=== PATIENT | female | born 1965 | race Caucasian/White ===

== ENCOUNTER 2020-11-16 20:52 | Inpatient (IN) | payer OTHER ==
[~2020-11-16] VITALS: Ht 157.5 cm; Wt 74.0 kg
[2020-11-16] MEDS ORDERED: SIMV-259 PO (20:58)
[2020-11-16 21:46] LABS: BASOPHILS % (AUTO) 1.2 % (0.0-2.0); EOSINOPHILS % (AUTO) 0.3 % (1.0-6.0); HEMATOCRIT 42.7 % (36-46); HEMOGLOBIN 14.5 g/dL (12.0-16.0); LYMPHOCYTES % (AUTO) 13.5 % (22.0-44.0); MEAN CORPUSCULAR HEMOGLOBIN 30.7 pg (26.0-34.0); MEAN CORPUSCULAR HGB CONC 33.9 G/dL (31.0-37.0); MEAN CORPUSCULAR VOLUME 91 fL (80-100); MONOCYTES # (AUTO) 0.9 K/uL (0.1-1.0); MONOCYTES % (AUTO) 5.9 % (2.0-9.0); NEUTROPHILS # (AUTO) 11.6 K/uL (1.8-7.7); NEUTROPHILS % (AUTO) 79.1 % (40.0-70.0); PLATELET COUNT (AUTO) 307 K/uL (150-450); RED BLOOD CELL COUNT(AUTO) 4.71 MIL/uL (4.00-5.20); RED CELL DISTRIBUTION WIDTH 13.7 % (11.5-14.5)
[2020-11-16 21:49] LABS: APPEARANCE,URINE CLEAR (CLEAR); BILIRUBIN,URINE NEGATIVE (NEGATIVE); GLUCOSE, URINE (UA) NEGATIVE (NEGATIVE); KETONES,URINE NEGATIVE (NEGATIVE); LEUKOCYTE ESTERASE ,URINE NEGATIVE (NEGATIVE); NITRATE,URINE NEGATIVE (NEGATIVE); OCCULT BLOOD,URINE NEGATIVE (NEGATIVE); PH,URINE 6.5 (5.0-8.0); PROTEIN,URINE NEGATIVE (NEGATIVE); UROBILINOGEN,URINE 0.2 mg/dL (<=1.0)
[2020-11-16 22:01] LABS: ANION GAP 10 mmol/L (8-16); CALCIUM, TOTAL 9.6 mg/dL (8.8-10.5); CARBON DIOXIDE 29 mmol/L (22-29); CHLORIDE 101 mmol/L (98-107); CREATININE 0.94 mg/dL (0.60-1.30); GLOMERULAR FILTR. RATE CALC > 60 mL/min (>60); GLUCOSE,RANDOM 122 mg/dL (70-110); POTASSIUM 3.8 mmol/L (3.5-5.1); SODIUM SERUM 140 mmol/L (136-145); UREA NITROGEN, BLOOD 13 mg/dL (7-18)
[2020-11-16 22:07] LABS: ALANINE AMINOTRANSFERASE 64 U/L (12-78); ALBUMIN 4.2 g/dL (3.4-5.0); ALKALINE PHOSPHATASE 120 U/L (46-116); ASPARTATE AMINOTRANSFERASE 21 U/L (15-37); BILIRUBIN,TOTAL 0.2 mg/dL (0.1-1.0); LIPASE 190 U/L (73-393); TOTAL PROTEIN, SERUM 7.9 g/dL (6.4-8.2)
[2020-11-16] MEDS ORDERED: KETOROLAC TROMETHAMINE 30 MG/ML VIAL IVP ONE (22:30)
[2020-11-16] MEDS ORDERED: BARIUM SULFATE 0.1% SUSPENSION 450 ML BOTTLE PO ONE (22:30)
[2020-11-16] MEDS ORDERED: LORazepam 2 MG/ML VIAL IVP ONE (22:30)
[2020-11-16] MEDS ORDERED: SODIUM CHLORIDE 0.9% 1,000 ML IV ONE (22:30)
[2020-11-16] MEDS ORDERED: IOVERSOL 350 MG/ML 100 ML VIAL ONE (23:05)
[2020-11-16] MEDS ORDERED: SODIUM CHLORIDE 0.9% 100 ML ONE (23:05)
[2020-11-17] VITALS (7 sets, daily range): BP systolic 106–121; BP diastolic 60–73
[2020-11-17] MEDS ORDERED: MORPHINE SULFATE 4 MG/ML SYRINGE IVP ONE (01:00)
[2020-11-17] MEDS ORDERED: ONDANSETRON HCL 4 MG/2 ML VIAL IVP PRN (01:15)
[2020-11-17] MEDS ORDERED: PIPERACILLIN/TAZO 3.375 GM/D5W 50 ML IV ONE (01:15)
[2020-11-17] MEDS ORDERED: POTASSIUM CHL 20 MEQ/0.9% NS 1,000 ML IV ONE (01:15)
[2020-11-17 03:06] LABS: COVID AG,FIA SOURCE NASOPHARYNGEAL
[2020-11-17] MEDS: MORPHINE SULFATE 4 MG/ML SYRINGE IVP PRN ×5 (03:24→20:05)
[2020-11-17] MEDS ORDERED: INFLUENZA VIRUS VACCINE QVS 2020-21 (6MO+)/PF 60 MCG/0.5 ML SYRINGE IM ONE (05:30)
[2020-11-17] MEDS ORDERED: PIPERACILLIN/TAZO 3.375 GM/D5W 50 ML IV SCH (08:00)
[2020-11-17] MEDS: DOCUSATE SODIUM 100 MG CAPSULE PO SCH ×2 (08:35→20:04)
[2020-11-17] MEDS: SODIUM CHLORIDE 0.9% 1,000 ML IV SCH ×2 (08:36→21:10)
[2020-11-17] MEDS: ACETAMINOPHEN 325 MG TABLET PO PRN ×2 (08:45→21:10)
[2020-11-17] MEDS ORDERED: PANTOPRAZOLE SODIUM 40 MG/VIAL IVP SCH (09:00)
[2020-11-17] MEDS: ONDANSETRON HCL 4 MG/2 ML VIAL IVP PRN (14:47)
[2020-11-17] MEDS: LORazepam 2 MG/ML VIAL IVP PRN (14:48)
[2020-11-17] MEDS: PIPERACILLIN/TAZO 3.375 GM/D5W 50 ML IV SCH ×2 (16:39→22:22)
[2020-11-17] MEDS: FAMOTIDINE 20 MG TABLET PO SCH (20:04)
[2020-11-18] MEDS: ACETAMINOPHEN 325 MG TABLET PO PRN ×3 (01:51→20:34)
[2020-11-18] MEDS: SODIUM CHLORIDE 0.9% 1,000 ML IV SCH ×3 (04:00→22:19)
[2020-11-18] MEDS: PIPERACILLIN/TAZO 3.375 GM/D5W 50 ML IV SCH ×4 (04:07→22:21)
[2020-11-18 04:49] VITALS: BP 108/73
[2020-11-18 08:02] VITALS: BP 119/71
[2020-11-18 08:24] LABS: ANION GAP 3 mmol/L (8-16); CALCIUM, TOTAL 8.7 mg/dL (8.8-10.5); CARBON DIOXIDE 28 mmol/L (22-29); CHLORIDE 101 mmol/L (98-107); CREATININE 0.69 mg/dL (0.60-1.30); GLOMERULAR FILTR. RATE CALC > 60 mL/min (>60); GLUCOSE,RANDOM 113 mg/dL (70-110); POTASSIUM 3.8 mmol/L (3.5-5.1); SODIUM SERUM 132 mmol/L (136-145); UREA NITROGEN, BLOOD 7 mg/dL (7-18)
[2020-11-18 08:26] LABS: BASOPHILS % (AUTO) 0.4 % (0.0-2.0); EOSINOPHILS % (AUTO) 0.2 % (1.0-6.0); HEMATOCRIT 37.2 % (36-46); HEMOGLOBIN 12.6 g/dL (12.0-16.0); LYMPHOCYTES # (AUTO) 1.3 K/uL (1.0-4.8); LYMPHOCYTES % (AUTO) 8.6 % (22.0-44.0); MEAN CORPUSCULAR HEMOGLOBIN 31.1 pg (26.0-34.0); MEAN CORPUSCULAR HGB CONC 33.7 G/dL (31.0-37.0); MEAN CORPUSCULAR VOLUME 92 fL (80-100); MONOCYTES # (AUTO) 0.7 K/uL (0.1-1.0); MONOCYTES % (AUTO) 4.7 % (2.0-9.0); NEUTROPHILS # (AUTO) 12.7 K/uL (1.8-7.7); PLATELET COUNT (AUTO) 245 K/uL (150-450); RED BLOOD CELL COUNT(AUTO) 4.05 MIL/uL (4.00-5.20); RED CELL DISTRIBUTION WIDTH 13.9 % (11.5-14.5)
[2020-11-18] MEDS: DOCUSATE SODIUM 100 MG CAPSULE PO SCH ×2 (08:27→20:31)
[2020-11-18] MEDS: FAMOTIDINE 20 MG TABLET PO SCH ×2 (08:27→20:31)
[2020-11-18] MEDS: MORPHINE SULFATE 4 MG/ML SYRINGE IVP PRN ×3 (08:28→20:31)
[2020-11-18 08:33] LABS: NEUTROPHILS % (AUTO) 86.1 % (40.0-70.0)
[2020-11-18] MEDS: ONDANSETRON HCL 4 MG/2 ML VIAL IVP PRN ×2 (08:38→15:57)
[2020-11-18 15:39] VITALS: BP 113/72
[2020-11-18 20:23] VITALS: BP 116/70
[2020-11-18] MEDS: LORazepam 2 MG/ML VIAL IVP PRN (22:20)
[2020-11-19 00:24] VITALS: BP 118/71
[2020-11-19] MEDS: PIPERACILLIN/TAZO 3.375 GM/D5W 50 ML IV SCH ×4 (03:50→21:24)
[2020-11-19 05:50] VITALS: BP 125/83
[2020-11-19 07:41] VITALS: BP_SYST 11; BP_SYST 114; BP_DIAS 66
[2020-11-19 07:49] LABS: BASOPHILS % (AUTO) 0.5 % (0.0-2.0); EOSINOPHILS % (AUTO) 0.2 % (1.0-6.0); HEMOGLOBIN 11.9 g/dL (12.0-16.0); LYMPHOCYTES # (AUTO) 1.6 K/uL (1.0-4.8); LYMPHOCYTES % (AUTO) 12.6 % (22.0-44.0); MEAN CORPUSCULAR HEMOGLOBIN 30.9 pg (26.0-34.0); MEAN CORPUSCULAR HGB CONC 33.9 G/dL (31.0-37.0); MEAN CORPUSCULAR VOLUME 91 fL (80-100); MONOCYTES # (AUTO) 0.6 K/uL (0.1-1.0); MONOCYTES % (AUTO) 4.8 % (2.0-9.0); NEUTROPHILS # (AUTO) 10.7 K/uL (1.8-7.7); NEUTROPHILS % (AUTO) 81.9 % (40.0-70.0); PLATELET COUNT (AUTO) 239 K/uL (150-450); RED BLOOD CELL COUNT(AUTO) 3.84 MIL/uL (4.00-5.20); RED CELL DISTRIBUTION WIDTH 13.8 % (11.5-14.5)
[2020-11-19 07:54] LABS: ANION GAP 11 mmol/L (8-16); CALCIUM, TOTAL 8.6 mg/dL (8.8-10.5); CARBON DIOXIDE 25 mmol/L (22-29); CHLORIDE 105 mmol/L (98-107); CREATININE 0.68 mg/dL (0.60-1.30); GLOMERULAR FILTR. RATE CALC > 60 mL/min (>60); GLUCOSE,RANDOM 107 mg/dL (70-110); POTASSIUM 3.6 mmol/L (3.5-5.1); SODIUM SERUM 141 mmol/L (136-145); UREA NITROGEN, BLOOD 7 mg/dL (7-18)
[2020-11-19] MEDS: DOCUSATE SODIUM 100 MG CAPSULE PO SCH ×2 (09:15→20:41)
[2020-11-19] MEDS: FAMOTIDINE 20 MG TABLET PO SCH ×2 (09:15→20:41)
[2020-11-19] MEDS: MORPHINE SULFATE 4 MG/ML SYRINGE IVP PRN (09:25)
[2020-11-19] MEDS: DEXTROSE 5%-0.45% SODIUM CHL 1,000 ML IV SCH (10:18)
[2020-11-19] MEDS ORDERED: FLUO20CA36 PO (12:16)
[2020-11-19] MEDS ORDERED: BUPR-317 PO (12:16)
[2020-11-19] MEDS ORDERED: NORT50CA PO (12:16)
[2020-11-19] MEDS ORDERED: CLON0.5T4 PO (12:16)
[2020-11-19] MEDS: ACETAMINOPHEN 325 MG TABLET PO PRN (13:55)
[2020-11-19 15:18] VITALS: BP 121/76
[2020-11-19] MEDS: MORPHINE SULFATE 2 MG/ML SYRINGE IVP PRN ×2 (16:40→21:28)
[2020-11-19 19:32] VITALS: BP 121/75
[2020-11-19] MEDS: LORazepam 2 MG/ML VIAL IVP PRN (22:28)
[2020-11-19 23:43] VITALS: BP 116/65
[2020-11-20] MEDS: MORPHINE SULFATE 2 MG/ML SYRINGE IVP PRN ×4 (01:46→21:18)
[2020-11-20] MEDS: DEXTROSE 5%-0.45% SODIUM CHL 1,000 ML IV SCH ×2 (01:47→17:11)
[2020-11-20 04:19] VITALS: BP 110/67
[2020-11-20] MEDS: PIPERACILLIN/TAZO 3.375 GM/D5W 50 ML IV SCH ×4 (04:46→21:18)
[2020-11-20 08:21] VITALS: BP 106/69
[2020-11-20 08:41] LABS: LYMPHOCYTES # (AUTO) 1.3 K/uL (1.0-4.8); MONOCYTES # (AUTO) 0.7 K/uL (0.1-1.0); NEUTROPHILS # (AUTO) 7.9 K/uL (1.8-7.7)
[2020-11-20 08:45] LABS: BASOPHILS % (AUTO) 1.3 % (0.0-2.0); EOSINOPHILS % (AUTO) 1.2 % (1.0-6.0); HEMATOCRIT 36.6 % (36-46); HEMOGLOBIN 12.7 g/dL (12.0-16.0); LYMPHOCYTES % (AUTO) 13.1 % (22.0-44.0); MEAN CORPUSCULAR HEMOGLOBIN 31.2 pg (26.0-34.0); MEAN CORPUSCULAR HGB CONC 34.6 G/dL (31.0-37.0); MEAN CORPUSCULAR VOLUME 90 fL (80-100); MONOCYTES % (AUTO) 6.5 % (2.0-9.0); NEUTROPHILS % (AUTO) 77.9 % (40.0-70.0); RED BLOOD CELL COUNT(AUTO) 4.07 MIL/uL (4.00-5.20); RED CELL DISTRIBUTION WIDTH 13.7 % (11.5-14.5)
[2020-11-20 08:46] LABS: ANION GAP 12 mmol/L (8-16); CARBON DIOXIDE 24 mmol/L (22-29); CHLORIDE 103 mmol/L (98-107); GLUCOSE,RANDOM 122 mg/dL (70-110); POTASSIUM 3.5 mmol/L (3.5-5.1); SODIUM SERUM 139 mmol/L (136-145); UREA NITROGEN, BLOOD 9 mg/dL (7-18)
[2020-11-20 08:47] LABS: CALCIUM, TOTAL 8.9 mg/dL (8.8-10.5); GLOMERULAR FILTR. RATE CALC > 60 mL/min (>60)
[2020-11-20] MEDS: FAMOTIDINE 20 MG TABLET PO SCH ×2 (09:00→20:38)
[2020-11-20] MEDS: DOCUSATE SODIUM 100 MG CAPSULE PO SCH ×2 (09:00→20:38)
[2020-11-20 09:19] LABS: PLATELET COUNT (AUTO) 267 K/uL (150-450)
[2020-11-20 12:03] VITALS: BP 102/54
[2020-11-20 17:10] VITALS: BP 139/78
[2020-11-20 20:10] VITALS: BP 121/76
[2020-11-20] MEDS: ONDANSETRON HCL 4 MG/2 ML VIAL IVP PRN (21:22)
[2020-11-21 00:10] VITALS: BP 129/72
[2020-11-21] MEDS: LORazepam 2 MG/ML VIAL IVP PRN (00:16)
[2020-11-21] MEDS: MORPHINE SULFATE 2 MG/ML SYRINGE IVP PRN (02:40)
[2020-11-21] MEDS: PIPERACILLIN/TAZO 3.375 GM/D5W 50 ML IV SCH ×2 (03:44→09:12)
[2020-11-21 04:10] VITALS: BP 102/67
[2020-11-21 06:56] LABS: BASOPHILS % (AUTO) 1.8 % (0.0-2.0); EOSINOPHILS % (AUTO) 1.7 % (1.0-6.0); HEMATOCRIT 37.1 % (36-46); HEMOGLOBIN 12.8 g/dL (12.0-16.0); LYMPHOCYTES # (AUTO) 1.5 K/uL (1.0-4.8); LYMPHOCYTES % (AUTO) 21.6 % (22.0-44.0); MEAN CORPUSCULAR HEMOGLOBIN 31.2 pg (26.0-34.0); MEAN CORPUSCULAR HGB CONC 34.4 G/dL (31.0-37.0); MEAN CORPUSCULAR VOLUME 91 fL (80-100); MONOCYTES # (AUTO) 0.7 K/uL (0.1-1.0); MONOCYTES % (AUTO) 10.1 % (2.0-9.0); NEUTROPHILS # (AUTO) 4.4 K/uL (1.8-7.7); NEUTROPHILS % (AUTO) 64.8 % (40.0-70.0); PLATELET COUNT (AUTO) 301 K/uL (150-450); RED BLOOD CELL COUNT(AUTO) 4.09 MIL/uL (4.00-5.20); RED CELL DISTRIBUTION WIDTH 13.8 % (11.5-14.5)
[2020-11-21 08:29] LABS: ANION GAP 12 mmol/L (8-16); CARBON DIOXIDE 25 mmol/L (22-29); CHLORIDE 103 mmol/L (98-107); CREATININE 0.64 mg/dL (0.60-1.30); GLOMERULAR FILTR. RATE CALC > 60 mL/min (>60); GLUCOSE,RANDOM 111 mg/dL (70-110); POTASSIUM 3.4 mmol/L (3.5-5.1); SODIUM SERUM 140 mmol/L (136-145); UREA NITROGEN, BLOOD 10 mg/dL (7-18)
[2020-11-21 08:57] VITALS: BP 114/76
[2020-11-21] MEDS: DOCUSATE SODIUM 100 MG CAPSULE PO SCH (09:00)
[2020-11-21] MEDS: FAMOTIDINE 20 MG TABLET PO SCH (09:12)
[2020-11-21] MEDS: ACETAMINOPHEN 325 MG TABLET PO PRN (09:35)
[2020-11-21] MEDS ORDERED: POTASSIUM CHLORIDE 20 MEQ ER TABLET PO ONE (10:45)
[2020-11-21] MEDS ORDERED: CIPR500S4 PO (10:57)
[2020-11-21] MEDS ORDERED: METR500 PO (10:58)
[2020-11-21] MEDS ORDERED: DOCU-275 PO (10:59)
== END 2020-11-21 12:31 | disposition home or self-care (01) | DRG 244 ==
LOC: EMS 20:52 → 4E 11-17 02:00
PROVIDERS: ADMIT Internal Medicine; ATTEND Internal Medicine
DX: K57.20 Diverticulitis of large intestine with perforation and abscess without bleeding (principal); E66.9 Obesity, unspecified; R65.10 Systemic inflammatory response syndrome (SIRS) of non-infectious origin without acute organ dysfunction; R35.0 Frequency of micturition; K59.09 Other constipation; F41.9 Anxiety disorder, unspecified; Z20.822 Contact with and (suspected) exposure to COVID-19; E78.00 Pure hypercholesterolemia, unspecified; F41.1 Generalized anxiety disorder; Z79.899 Other long term (current) drug therapy; Z68.29 Body mass index [BMI] 29.0-29.9, adult; Z23 Encounter for immunization; F99 Mental disorder, not otherwise specified
CPT/HCPCS: 74177; 87426; 93005; 99285; A9575; C9113; G0378; J1885; J2060; J2270; J2405; J2543; J3480; J7030; J7050